=== PATIENT | male | born 1965 | race Caucasian/White ===

== ENCOUNTER → 2016-07-31 | Outpatient (REF) | payer BC ==
[2016-07-31 13:30] LABS: ALBUMIN 3.8 GM/DL (3.2-5.2); ALBUMIN/GLOBULIN RATIO 1.36 (1.00-1.93); ALKALINE PHOSPHATASE 44 U/L (45-117); ALT/SGPT 36 U/L (12-78); ANION GAP 5 MEQ/L (8-16); AST/SGOT 19 U/L (15-37); BLOOD UREA NITROGEN 16 MG/DL (7-18); CARBON DIOXIDE LEVEL 29 MEQ/L (21-32); CHLORIDE LEVEL 104 MEQ/L (98-107); CHOLESTEROL LEVEL 220 MG/DL (<200); CREATININE FOR GFR 0.99 MG/DL (0.70-1.30); GLOMERULAR FILTRATION RATE > 60.0 (>56); GLUCOSE, FASTING 118 MG/DL (70-105); POTASSIUM SERUM 4.7 MEQ/L (3.5-5.1); SODIUM LEVEL 138 MEQ/L (136-145); TOTAL PROTEIN 6.6 GM/DL (6.4-8.2); TRIGLYCERIDES LEVEL 158 MG/DL (<150)
[2016-07-31 13:56] LABS: BASO % 0.7 % (0.0-1.0); EOS # 0.3 K/mm3 (0.0-0.50); EOS % 4.5 % (0.0-3.0); LARGE UNSTAINED CELL # 0.1 K/mm3 (0.0-0.4); LARGE UNSTAINED CELL % 1.9 % (0.0-4.0); LYMPH # 1.9 K/mm3 (1.5-4.5); MEAN CORPUSCULAR HEMOGLOBIN 32.4 pg (27.0-33.0); MEAN CORPUSCULAR HGB CONC 33.7 g/dl (32.0-36.5); MEAN CORPUSCULAR VOLUME 96.1 fl (80.0-96.0); MONO # 0.5 K/mm3 (0.0-0.8); MONO % 7.4 % (0.0-5.0); NEUTROPHILS # 4.1 K/mm3 (1.8-7.7); NEUTROPHILS % 59.4 % (36.0-66.0); PLATELET COUNT, AUTOMATED 212 k/mm3 (150-450); RED CELL DISTRIBUTION WIDTH 11.6 % (11.5-14.5); WHITE BLOOD COUNT 6.9 K/mm3 (4.0-10.0)
== END ==
LOC: M SFHCADAM 07:54
PROVIDERS: ATTEND Physician Assistant Medical
DX: I10 Essential (primary) hypertension (principal); R73.01 Impaired fasting glucose

== ENCOUNTER → 2017-10-03 | Outpatient (REF) | payer BC ==
[2017-10-03 12:24] LABS: BASO % 0.5 % (0.0-1.0); EOS # 0.3 10^3/uL (0.0-0.50); EOS % 3.7 % (0.0-3.0); HEMATOCRIT 46.2 % (42.0-52.0); HEMOGLOBIN 16.3 g/dl (13.5-17.5); IMMATURE GRANULOCYTE % 0.4 % (0-3.0); LYMPH # 1.9 10^3/uL (1.5-4.5); LYMPH % 24.7 % (24.0-44.0); MEAN CORPUSCULAR HEMOGLOBIN 32.8 pg (27.0-33.0); MEAN CORPUSCULAR HGB CONC 35.3 g/dl (32.0-36.5); MONO # 0.7 10^3/uL (0.0-0.8); MONO % 8.4 % (0.0-5.0); NEUTROPHILS # 4.9 10^3/uL (1.8-7.7); NEUTROPHILS % 62.3 % (36.0-66.0); PLATELET COUNT, AUTOMATED 212 10^3/uL (150-450); RED BLOOD COUNT 4.97 10^6/uL (4.30-6.10); RED CELL DISTRIBUTION WIDTH 11.3 % (11.5-14.5); WHITE BLOOD COUNT 7.9 10^3/uL (4.0-10.0)
[2017-10-03 12:46] LABS: TOTAL 25(OH) VITAMIN D 12.8 NG/ML (30.0-100.0)
[2017-10-03 12:55] LABS: MALB URINE SIEMENS 7.7 MG/L; MAU/CREAT RATIO 3.6 MCG/MG (0.0-30.0)
[2017-10-03 13:25] LABS: BLOOD UREA NITROGEN 20 MG/DL (7-18); CREATININE FOR GFR 1.07 MG/DL (0.70-1.30); GLUCOSE, FASTING 97 MG/DL (70-100)
[2017-10-03 13:26] LABS: ALBUMIN 3.9 GM/DL (3.2-5.2); ALBUMIN/GLOBULIN RATIO 1.34 (1.00-1.93); ALKALINE PHOSPHATASE 55 U/L (45-117); ALT/SGPT 46 U/L (12-78); ANION GAP 6 MEQ/L (8-16); AST/SGOT 17 U/L (7-37); BILIRUBIN,TOTAL 1.1 MG/DL (0.2-1.0); CALCIUM LEVEL 8.7 MG/DL (8.5-10.1); CARBON DIOXIDE LEVEL 28 MEQ/L (21-32); CHLORIDE LEVEL 105 MEQ/L (98-107); CHOLESTEROL LEVEL 201 MG/DL (<200); CHOLESTEROL RISK RATIO 4.102 (<5); FREE T4 0.96 NG/DL (0.76-1.46); GLOMERULAR FILTRATION RATE > 60.0 (>56); HDL CHOLESTEROL 49 MG/DL (>40); LDL CHOLESTEROL 110.4 MG/DL (<100); NON-HDL-C 152 MG/DL; POTASSIUM SERUM 4.5 MEQ/L (3.5-5.1); SODIUM LEVEL 139 MEQ/L (136-145); THYROID STIMULATING HORMONE 0.962 uIU/ML (0.358-3.740); TOTAL PROTEIN 6.8 GM/DL (6.4-8.2); TRIGLYCERIDES LEVEL 208 MG/DL (<150)
[2017-10-03 14:29] LABS: ESTIMATED AVERAGE GLUCOSE 114 MG/DL (60-110); HEMOGLOBIN A1c 5.6 %
== END ==
LOC: M SFHCADAM 07:50
DX: E78.5 Hyperlipidemia, unspecified (principal); E55.9 Vitamin D deficiency, unspecified; R73.01 Impaired fasting glucose
CPT/HCPCS: 84443

== ENCOUNTER 2018-02-12 08:43 | Day surgery (SDC) | payer BC ==
[~2018-02-12 08:43] MED LIST: PROPOFOL 200 MG/20 ML VIAL As Ordered
[2018-02-12] MEDS ORDERED: NS 1,000 ML IV (10:15)
== END 2018-02-12 11:02 | disposition home or self-care (01) ==
LOC: M OPP 11:02
DX: Z12.11 Encounter for screening for malignant neoplasm of colon (principal); Z86.010 Personal history of colon polyps; K57.30 Diverticulosis of large intestine without perforation or abscess without bleeding; K64.8 Other hemorrhoids; I10 Essential (primary) hypertension; E78.5 Hyperlipidemia, unspecified; Z79.82 Long term (current) use of aspirin; Z79.899 Other long term (current) drug therapy
CPT/HCPCS: G0105

== ENCOUNTER → 2018-03-26 | Outpatient (REF) | payer BC ==
[2018-03-26 19:51] LABS: TOTAL 25(OH) VITAMIN D 62.3 NG/ML (30.0-100.0)
== END ==
LOC: M SFHCADAM 15:55
DX: E55.9 Vitamin D deficiency, unspecified (principal)
CPT/HCPCS: 82306

== ENCOUNTER → 2019-04-26 | Outpatient (REF) | payer BC ==
[~2019-04-26] MED LIST changes: +ASPI81TA26 PO; +ATOR1TAB21 PO; +LISI20TA19 PO; +MAGN250T9 PO; -PROPOFOL 200 MG/20 ML VIAL As Ordered
[2019-04-26 11:37] LABS: BASO # 0.1 10^3/uL (0.0-0.2); BASO % 0.9 % (0.0-1.0); EOS # 0.2 10^3/uL (0.0-0.5); EOS % 3.1 % (0.0-3.0); HEMATOCRIT 47.7 % (42.0-52.0); HEMOGLOBIN 16.2 g/dl (13.5-17.5); LYMPH # 1.6 10^3/uL (1.5-5.0); MEAN CORPUSCULAR HEMOGLOBIN 32.3 pg (27.0-33.0); MEAN CORPUSCULAR VOLUME 95.2 fl (80.0-96.0); MONO # 0.5 10^3/uL (0.0-0.8); MONO % 8.2 % (0.0-5.0); NEUTROPHILS # 3.5 10^3/uL (1.5-8.5); NEUTROPHILS % 60.1 % (36.0-66.0); PLATELET COUNT, AUTOMATED 218 10^3/uL (150-450); RED BLOOD COUNT 5.01 10^6/uL (4.30-6.10); WHITE BLOOD COUNT 5.9 10^3/uL (4.0-10.0)
[2019-04-26 11:42] LABS: ALBUMIN 3.9 GM/DL (3.2-5.2); ALT/SGPT 31 U/L (12-78); BILIRUBIN,TOTAL 0.7 MG/DL (0.2-1.0); BLOOD UREA NITROGEN 14 MG/DL (7-18); CALCIUM LEVEL 8.9 MG/DL (8.5-10.1); CARBON DIOXIDE LEVEL 27 MEQ/L (21-32); CHLORIDE LEVEL 103 MEQ/L (98-107); CHOLESTEROL LEVEL 264 MG/DL (<200); CHOLESTEROL RISK RATIO 6.139 (<5); CREATININE FOR GFR 0.98 MG/DL (0.70-1.30); GLOMERULAR FILTRATION RATE > 60.0 (>56); GLUCOSE, FASTING 119 MG/DL (70-100); HDL CHOLESTEROL 43 MG/DL (>40); LDL CHOLESTEROL 160 MG/DL (<100); NON-HDL-C 221 MG/DL; POTASSIUM SERUM 4.6 MEQ/L (3.5-5.1); SODIUM LEVEL 137 MEQ/L (136-145); TRIGLYCERIDES LEVEL 303 MG/DL (<150)
[2019-04-26 11:50] LABS: TOTAL 25(OH) VITAMIN D 27.7 NG/ML (30.0-100.0)
[2019-04-26 12:43] LABS: HEMOGLOBIN A1c 6.1 %
== END ==
LOC: M SFHCADAM 07:59
PROVIDERS: ATTEND Physician Assistant Medical
DX: I10 Essential (primary) hypertension (principal); E78.5 Hyperlipidemia, unspecified; E55.9 Vitamin D deficiency, unspecified; R73.01 Impaired fasting glucose

== ENCOUNTER → 2020-04-24 | Outpatient (REF) | payer BC ==
[~2020-04-24] MED LIST changes: -LISI20TA19 PO; +LISI20TA35 PO
[2020-04-24 12:44] LABS: BASO # 0.1 10^3/uL (0.0-0.2); BASO % 0.7 % (0.0-1.0); EOS # 0.2 10^3/uL (0.0-0.5); EOS % 2.2 % (0.0-3.0); HEMATOCRIT 48.6 % (42.0-52.0); HEMOGLOBIN 16.1 g/dl (13.5-17.5); LYMPH # 1.5 10^3/uL (1.5-5.0); LYMPH % 22.5 % (24.0-44.0); MEAN CORPUSCULAR HEMOGLOBIN 30.8 pg (27.0-33.0); MEAN CORPUSCULAR HGB CONC 33.1 g/dl (32.0-36.5); MEAN CORPUSCULAR VOLUME 93.1 fl (80.0-96.0); MONO # 0.6 10^3/uL (0.0-0.8); MONO % 8.2 % (0.0-5.0); NEUTROPHILS # 4.5 10^3/uL (1.5-8.5); NEUTROPHILS % 66.1 % (36.0-66.0); PLATELET COUNT, AUTOMATED 249 10^3/uL (150-450); RED BLOOD COUNT 5.22 10^6/uL (4.30-6.10); WHITE BLOOD COUNT 6.8 10^3/uL (4.0-10.0)
[2020-04-24 13:09] LABS: HEMOGLOBIN A1c 5.6 %
[2020-04-24 13:22] LABS: ALBUMIN 3.9 GM/DL (3.2-5.2); ALT/SGPT 38 U/L (12-78); BILIRUBIN,TOTAL 0.9 MG/DL (0.2-1.0); BLOOD UREA NITROGEN 16 MG/DL (7-18); CALCIUM LEVEL 9.4 MG/DL (8.5-10.1); CARBON DIOXIDE LEVEL 30 MEQ/L (21-32); CHLORIDE LEVEL 103 MEQ/L (98-107); CHOLESTEROL LEVEL 238 MG/DL (<200); CHOLESTEROL RISK RATIO 4.407 (<5); CREATININE FOR GFR 1.07 MG/DL (0.70-1.30); GLOMERULAR FILTRATION RATE > 60.0 (>56); GLUCOSE, FASTING 129 MG/DL (70-100); HDL CHOLESTEROL 54 MG/DL (>40); LDL CHOLESTEROL 165 MG/DL (<100); NON-HDL-C 184 MG/DL; POTASSIUM SERUM 4.7 MEQ/L (3.5-5.1); SODIUM LEVEL 139 MEQ/L (136-145); TOTAL PROTEIN 6.9 GM/DL (6.4-8.2); TRIGLYCERIDES LEVEL 97 MG/DL (<150)
== END ==
LOC: M SFHCADAM 08:26
PROVIDERS: ATTEND Physician Assistant Medical
DX: Z00.00 Encounter for general adult medical examination without abnormal findings (principal); I10 Essential (primary) hypertension; E78.5 Hyperlipidemia, unspecified; E55.9 Vitamin D deficiency, unspecified; R73.01 Impaired fasting glucose

== ENCOUNTER → 2020-06-15 | Outpatient (REF) | payer BC ==
[2020-06-15 12:59] LABS: BASO # 0.1 10^3/uL (0.0-0.2); BASO % 0.8 % (0.0-1.0); EOS # 0.1 10^3/uL (0.0-0.5); EOS % 1.5 % (0.0-3.0); HEMOGLOBIN 15.2 g/dl (13.5-17.5); LYMPH # 1.6 10^3/uL (1.5-5.0); LYMPH % 21.5 % (24.0-44.0); MEAN CORPUSCULAR HEMOGLOBIN 31.9 pg (27.0-33.0); MEAN CORPUSCULAR HGB CONC 33.8 g/dl (32.0-36.5); MEAN CORPUSCULAR VOLUME 94.3 fl (80.0-96.0); MONO # 0.7 10^3/uL (0.0-0.8); MONO % 8.9 % (2.0-8.0); NEUTROPHILS # 5.1 10^3/uL (1.5-8.5); NEUTROPHILS % 66.8 % (36.0-66.0); PLATELET COUNT, AUTOMATED 225 10^3/uL (150-450); RED BLOOD COUNT 4.77 10^6/uL (4.30-6.10); WHITE BLOOD COUNT 7.6 10^3/uL (4.0-10.0)
[2020-06-15 13:25] LABS: ALBUMIN 3.7 GM/DL (3.2-5.2); ALT/SGPT 46 U/L (12-78); BILIRUBIN,TOTAL 0.8 MG/DL (0.2-1.0); BLOOD UREA NITROGEN 14 MG/DL (7-18); CALCIUM LEVEL 8.8 MG/DL (8.5-10.1); CARBON DIOXIDE LEVEL 29 MEQ/L (21-32); CHLORIDE LEVEL 103 MEQ/L (98-107); CK-MB VALUE MASS 1.4 NG/ML (<3.6); CPK CREATINE PHOSPHOKINASE 170 U/L (39-308); CREATININE FOR GFR 0.95 MG/DL (0.70-1.30); GLOMERULAR FILTRATION RATE > 60.0 (>56); GLUCOSE, FASTING 102 MG/DL (70-100); MB/CK RELATIVE INDEX 0.82 (< OR =4); POTASSIUM SERUM 4.5 MEQ/L (3.5-5.1); SODIUM LEVEL 138 MEQ/L (136-145); TOTAL PROTEIN 6.4 GM/DL (6.4-8.2); TROPONIN I < 0.02 NG/ML (< 0.10)
[2020-06-15 13:38] LABS: ERYTHROCYTE SEDIMENTATION RATE 4 mm/hr (0-20)
== END ==
LOC: M SFHCADAM 09:57
PROVIDERS: ATTEND Family Medicine
DX: R07.9 Chest pain, unspecified (principal)

== ENCOUNTER → 2020-06-15 | Outpatient (CLI) | payer BC ==
--- NOTE | 2020-06-15 10:41 | REP ---
INDICATION: CHEST PAIN UNSPECIFIED TYPE. COMPARISON: No comparison chest x-rays. TECHNIQUE: Two views.. FINDINGS: There is a granulomatous calcification overlying the anterior end of the 3rd rib on the left. Below this at left mid lung field, there is an ill-defined 1.5 cm nodular density which is not definitely calcific. This is not seen on the lateral radiograph. The lung bertrand are otherwise clear. The pleural angles are sharp. Heart is not enlarged. There is minimal curvature and some degenerative disc change in the thoracic spine. The thoracic aorta is slightly tortuous. No acute bony abnormality is seen. IMPRESSION: 1.5 cm nodular density left mid lung zone. Granuloma versus noncalcified pulmonary nodule. Recommend chest CT study. Otherwise no active cardiopulmonary disease.. <Electronically signed by Kai Mosqueda > 06/15/20 [id number]
== END ==
LOC: M ADAMS 10:11
PROVIDERS: ATTEND Family Medicine
DX: R91.8 Other nonspecific abnormal finding of lung field (principal); R07.9 Chest pain, unspecified

== ENCOUNTER → 2020-06-21 | Outpatient (CLI) | payer BC ==
[~2020-06-21] MED LIST changes: +ISOVUE-370 76% 100ML VIAL As Ordered ONE
--- NOTE | 2020-06-21 20:47 | REP ---
INDICATION: ABN CHEST XRAY. COMPARISON: 06/15/2020 chest x-ray TECHNIQUE: Bolus of 75 cc Isovue 370 scanning through the chest with both coronal and sagittal reconstructions provided. FINDINGS: The lung bertrand are well inflated without pleural effusion or acute infiltrate. There is a densely calcified granuloma in the left lower lobe about 15 mm and corresponding to the radiographic finding last week. There is small of pleural based calcified granuloma mid axillary line on image 51 in the left lung. There is a 5 mm noncalcified granuloma in the right upper lobe on image 55 which is not seen radiographically. I do not I do not see other noncalcified nodules. There is some pleuroparenchymal scarring lateral basal segment left lower lobe in the deep sulcus. No calcified hilar nodes. Heart is not enlarged. There is no pericardial thickening or effusion. The aorta is without aneurysm or dissection and with few calcifications noted. The main, right and left pulmonary arteries are without filling defects. Lobar arteries intact without vessel cut off. No pathologic sized mediastinal or hilar adenopathy. Axillary and supraclavicular regions without mass or adenopathy. Bone windows show the sternum, manubrium, medial clavicles, AC joint on the left, glenohumeral joints and right humeral head all intact. The left humeral head has a bone island. Visualized ribs show no acute finding. Bony thorax is without compression deformity or focal lesion. There are marginal osteophytes. Upper abdomen shows that portion of liver and spleen included to be unremarkable. Gallbladder was intact there is no biliary dilatation. No definite adrenal lesion. Upper poles of kidneys are intact. Stomach was unremarkable with no hiatal hernia. Pancreas unremarkable. No retroperitoneal, periaortic or mesenteric lymphadenopathy seen. Visualized colon in the upper abdomen was unremarkable IMPRESSION: 1. Nodule seen on radiograph is a large calcified granuloma in the left lower lobe and represents a benign finding. There is another calcified granuloma in the left upper lobe. 2. 5 mm noncalcified nodule in the right upper lobe. Using Fleischner society recommendation for this nodule, a follow-up with CT in 6 months to document stability. No other significant finding <Electronically signed by Paul Mendes > 06/21/20 [id number]
== END ==
LOC: M RAD 17:02
PROVIDERS: ATTEND Family Medicine
DX: R91.8 Other nonspecific abnormal finding of lung field (principal); R93.89 Abnormal findings on diagnostic imaging of other specified body structures
CPT/HCPCS: 71260; Q9967

== ENCOUNTER → 2020-12-27 | Outpatient (CLI) | payer BC ==
[~2020-12-27] MED LIST changes: -ISOVUE-370 76% 100ML VIAL As Ordered ONE
--- NOTE | 2020-12-29 05:38 | REP ---
INDICATION: LUNG NODULE COMPARISON: 06/21/2020 TECHNIQUE: Axial noncontrast images from the thoracic inlet to the upper abdomen with coronal and sagittal reformations. This CT examination was performed using the following dose reduction techniques: Automated exposure control, adjustment of mA and/or kv according to the patient's size, and use of iterative reconstruction technique. FINDINGS: Calcified granuloma in the posterior aspect of the left upper lobe and smaller calcified subpleural density also previously identified in the left upper lobe along with few other scattered calcified nodules remain stable. 5 mm noncalcified nodule in the periphery of the right middle lobe again noted and essentially stable. No further significant nodule or mass lesion. No consolidation. No effusion. No pneumothorax. Tracheobronchial tree is patent. No significant adenopathy noted. Mediastinum demonstrates stable mild atherosclerotic changes to the thoracic aorta and coronary arteries without aortic aneurysm or cardiomegaly. No pericardial effusion. Skeletal structures intact and without acute osseous abnormality. IMPRESSION: Few bilateral calcified and noncalcified nodules remain essentially stable. Based on Fleischner society criteria this may be categorized as Lung-RADS 2. Twelve month follow-up examination for high risk patients may be warranted. <Electronically signed by Phan Alvarez > 12/29/20 0534
== END ==
LOC: M PLAIMG 11:02
PROVIDERS: ATTEND Physician Assistant Medical
DX: R91.1 Solitary pulmonary nodule (principal)

== ENCOUNTER → 2021-05-28 | Outpatient (REF) | payer BC ==
[2021-05-28 12:25] LABS: BASO % 0.7 % (0.0-1.0); EOS # 0.2 10^3/uL (0.0-0.5); EOS % 3.1 % (0.0-3.0); HEMATOCRIT 45.7 % (42.0-52.0); HEMOGLOBIN 15.7 g/dl (13.5-17.5); LYMPH # 1.5 10^3/uL (1.5-5.0); LYMPH % 26.5 % (24.0-44.0); MEAN CORPUSCULAR HEMOGLOBIN 31.7 pg (27.0-33.0); MEAN CORPUSCULAR HGB CONC 34.4 g/dl (32.0-36.5); MEAN CORPUSCULAR VOLUME 92.3 fl (80.0-96.0); MONO # 0.5 10^3/uL (0.0-0.8); MONO % 7.7 % (2.0-8.0); NEUTROPHILS # 3.6 10^3/uL (1.5-8.5); NEUTROPHILS % 61.5 % (36.0-66.0); PLATELET COUNT, AUTOMATED 241 10^3/uL (150-450); RED BLOOD COUNT 4.95 10^6/uL (4.30-6.10); WHITE BLOOD COUNT 5.8 10^3/uL (4.0-10.0)
[2021-05-28 12:57] LABS: ALBUMIN 3.8 GM/DL (3.2-5.2); ALT/SGPT 40 U/L (12-78); BILIRUBIN,TOTAL 0.6 MG/DL (0.2-1.0); BLOOD UREA NITROGEN 14 MG/DL (7-18); CALCIUM LEVEL 9.3 MG/DL (8.5-10.1); CARBON DIOXIDE LEVEL 27 MEQ/L (21-32); CHLORIDE LEVEL 102 MEQ/L (98-107); CHOLESTEROL LEVEL 222 MG/DL (<200); CHOLESTEROL RISK RATIO 6.166 (<5); CREATININE FOR GFR 0.96 MG/DL (0.70-1.30); GLOMERULAR FILTRATION RATE > 60.0 (>56); GLUCOSE, FASTING 126 MG/DL (70-100); HDL CHOLESTEROL 36 MG/DL (>40); NON-HDL-C 186 MG/DL; POTASSIUM SERUM 4.5 MEQ/L (3.5-5.1); SODIUM LEVEL 136 MEQ/L (136-145); TOTAL PROTEIN 6.8 GM/DL (6.4-8.2); TRIGLYCERIDES LEVEL 406 MG/DL (<150)
[2021-05-28 12:58] LABS: TOTAL 25(OH) VITAMIN D 30.8 NG/ML (30.0-100.0)
== END ==
LOC: M SFHCADAM 07:50
PROVIDERS: ATTEND Physician Assistant Medical
DX: Z00.00 Encounter for general adult medical examination without abnormal findings (principal); I10 Essential (primary) hypertension; E78.5 Hyperlipidemia, unspecified; E55.9 Vitamin D deficiency, unspecified; R73.01 Impaired fasting glucose

== ENCOUNTER → 2021-08-24 | Outpatient (REF) | payer BC ==
[2021-08-24 13:23] LABS: HEMOGLOBIN A1c 5.5 %
[2021-08-24 13:39] LABS: CHOLESTEROL RISK RATIO 4.4 (<5)
[2021-08-24 13:58] LABS: MALB URINE SIEMENS 5.9 MG/L; MAU/CREAT RATIO 5.1 MCG/MG (0.0-30.0)
== END ==
LOC: M SFHCADAM 08:02
PROVIDERS: ATTEND Physician Assistant Medical
DX: E78.5 Hyperlipidemia, unspecified (principal); R73.01 Impaired fasting glucose

== ENCOUNTER → 2022-01-25 | Outpatient (CLI) | payer BC | LOC: M RAD 07:14 | PROVIDERS: ATTEND Physician Assistant Medical | DX: R91.1 Solitary pulmonary nodule (principal) ==

== ENCOUNTER → 2022-03-01 | Outpatient (REF) | payer BC ==
[2022-03-01 14:29] LABS: ALBUMIN 3.8 GM/DL (3.2-5.2); ALT/SGPT 47 U/L (12-78); BLOOD UREA NITROGEN 14 MG/DL (7-18); CALCIUM LEVEL 9.3 MG/DL (8.5-10.1); CARBON DIOXIDE LEVEL 27 MEQ/L (21-32); CHLORIDE LEVEL 103 MEQ/L (98-107); CHOLESTEROL LEVEL 224 MG/DL (<200); CREATININE FOR GFR 1.08 MG/DL (0.70-1.30); GLOMERULAR FILTRATION RATE > 60.0 (>56); GLUCOSE, FASTING 117 MG/DL (70-100); HDL CHOLESTEROL 50 MG/DL (>40); LDL CHOLESTEROL 121 MG/DL (<100); NON-HDL-C 174 MG/DL; POTASSIUM SERUM 4.8 MEQ/L (3.5-5.1); SODIUM LEVEL 136 MEQ/L (136-145); TOTAL PROTEIN 6.9 GM/DL (6.4-8.2); TRIGLYCERIDES LEVEL 265 MG/DL (<150)
== END ==
LOC: M SFHCADAM 08:13
PROVIDERS: ATTEND Physician Assistant Medical
DX: E78.5 Hyperlipidemia, unspecified (principal); R73.01 Impaired fasting glucose

== ENCOUNTER → 2022-09-20 | Outpatient (REF) | payer BC ==
[2022-09-20 12:55] LABS: BASO # 0.1 10^3/uL (0.0-0.2); EOS # 0.2 10^3/uL (0.0-0.5); EOS % 3.8 % (0.0-3.0); HEMATOCRIT 46.4 % (42.0-52.0); HEMOGLOBIN 15.9 g/dl (13.5-17.5); LYMPH # 1.8 10^3/uL (1.5-5.0); LYMPH % 29.9 % (24.0-44.0); MEAN CORPUSCULAR HEMOGLOBIN 32.5 pg (27.0-33.0); MEAN CORPUSCULAR HGB CONC 34.3 g/dl (32.0-36.5); MEAN CORPUSCULAR VOLUME 94.9 fl (80.0-96.0); MONO # 0.7 10^3/uL (0.0-0.8); MONO % 11.4 % (2.0-8.0); NEUTROPHILS # 3.2 10^3/uL (1.5-8.5); NEUTROPHILS % 53.2 % (36.0-66.0); PLATELET COUNT, AUTOMATED 220 10^3/uL (150-450); RED BLOOD COUNT 4.89 10^6/uL (4.30-6.10); WHITE BLOOD COUNT 6.1 10^3/uL (4.0-10.0)
[2022-09-20 13:04] LABS: ALBUMIN 3.6 G/DL (3.2-5.2); ALKALINE PHOSPHATASE 64 U/L (46-116); ALT/SGPT 36 U/L (7.0-40); AST/SGOT 18 U/L (<34); BILIRUBIN,TOTAL 0.8 MG/DL (0.3-1.2); BLOOD UREA NITROGEN 16 MG/DL (9-23); CALCIUM LEVEL 9.1 MG/DL (8.5-10.1); CARBON DIOXIDE LEVEL 28 MMOL/L (20-31); CHLORIDE LEVEL 104 MMOL/L (98-107); CHOLESTEROL LEVEL 184 MG/DL (<200); CHOLESTEROL RISK RATIO 3.76 (<5); CREATININE FOR GFR 0.98 MG/DL (0.70-1.30); GLOMERULAR FILTRATION RATE > 60.0 (>56); GLUCOSE, FASTING 128 MG/DL (60-100); HDL CHOLESTEROL 48.9 MG/DL (>40); LDL CHOLESTEROL 107.1 MG/DL (<100); NON-HDL-C 135.1 MG/DL; POTASSIUM SERUM 4.6 MMOL/L (3.5-5.1); SODIUM LEVEL 138 MMOL/L (136-145); TOTAL PROTEIN 6.1 G/DL (5.7-8.2); TRIGLYCERIDES LEVEL 140 MG/DL (<150)
[2022-09-20 13:06] LABS: THYROID STIMULATING HORMONE 1.759 uIU/ML (0.55-4.78); TOTAL 25(OH) VITAMIN D 37.2 NG/ML (20.0-100.0)
[2022-09-20 13:27] LABS: HEMOGLOBIN A1c 5.8 % (4.0-6.0)
[2022-09-20 13:43] LABS: CREATININE, URINE 38.8 MG/DL; MALB URINE SIEMENS < 3.0 MG/L; MAU/CREAT RATIO 7.7 MCG/MG (0.0-30.0)
== END ==
LOC: M SFHCADAM 07:32
PROVIDERS: ATTEND Physician Assistant Medical
DX: I10 Essential (primary) hypertension (principal); E78.5 Hyperlipidemia, unspecified; E55.9 Vitamin D deficiency, unspecified; R73.01 Impaired fasting glucose

== ENCOUNTER → 2023-09-18 | Outpatient (CLI) | payer BC | LOC: M RAD 08:42 | PROVIDERS: ATTEND Physician Assistant Medical | DX: I71.40 Abdominal aortic aneurysm, without rupture, unspecified (principal) ==

== ENCOUNTER → 2023-11-21 | Outpatient (REF) | payer BC ==
[2023-11-21 14:14] LABS: ALKALINE PHOSPHATASE 65 U/L (46-116); ALT/SGPT 41 U/L (7.0-40); AST/SGOT 17 U/L (<34); BILIRUBIN,TOTAL 1.1 MG/DL (0.3-1.2); BLOOD UREA NITROGEN 17 MG/DL (9-23); CALCIUM LEVEL 9.2 MG/DL (8.3-10.6); CARBON DIOXIDE LEVEL 26 MMOL/L (20-31); CHLORIDE LEVEL 106 MMOL/L (98-107); CHOLESTEROL LEVEL 208 MG/DL (<200); CHOLESTEROL RISK RATIO 4.04 (<5); CREATININE FOR GFR 1.04 MG/DL (0.70-1.30); GLOMERULAR FILTRATION RATE > 60.0 (>49); GLUCOSE, FASTING 109 MG/DL (74-106); HDL CHOLESTEROL 51.4 MG/DL (>40); LDL CHOLESTEROL 129.8 MG/DL (<100); NON-HDL-C 156.6 MG/DL; POTASSIUM SERUM 4.7 MMOL/L (3.5-5.1); SODIUM LEVEL 139 MMOL/L (136-145); TOTAL PROTEIN 6.7 G/DL (5.7-8.2); TRIGLYCERIDES LEVEL 134 MG/DL (<150)
[2023-11-21 14:16] LABS: THYROID STIMULATING HORMONE 2.229 uIU/ML (0.55-4.78); TOTAL 25(OH) VITAMIN D 36.2 NG/ML (20.0-100.0)
[2023-11-21 14:32] LABS: HEMOGLOBIN A1c 5.9 % (4.0-6.0)
[2023-11-21 14:37] LABS: MALB URINE SIEMENS < 3.0 MG/L; MAU/CREAT RATIO 4.1 MCG/MG (0.0-30.0)
== END ==
LOC: M SFHCADAM 07:53
PROVIDERS: ATTEND Physician Assistant Medical
DX: I10 Essential (primary) hypertension (principal); E78.5 Hyperlipidemia, unspecified; E55.9 Vitamin D deficiency, unspecified; R73.01 Impaired fasting glucose

== ENCOUNTER 2023-12-12 08:34 | Day surgery (SDC) | payer BC ==
[~2023-12-12] VITALS: Ht 175.3 cm; Wt 93.3 kg
[~2023-12-12 08:34] MED LIST changes: +ATOR80TA59 PO; +VITA-256 PO
[2023-12-12] MEDS: NS 1,000 ML IV ONE (08:55)
[2023-12-12] MEDS ORDERED: LIDOCAINE 2% 100MG/5ML SDV (FOR ANES.) As Ordered ONE (10:06)
[2023-12-12] MEDS ORDERED: propofoL 200 MG/20 ML VIAL As Ordered ONE (10:06)
[2023-12-12 10:43] VITALS: TEMP 98
[2023-12-12 11:01] VITALS: BP 110/64; O2SAT 96
== END 2023-12-12 11:03 | disposition home or self-care (01) ==
LOC: M OPP 08:34
PROVIDERS: ATTEND Internal Medicine Gastroenterology
DX: Z12.11 Encounter for screening for malignant neoplasm of colon (principal); Z86.010 Personal history of colon polyps; D12.5 Benign neoplasm of sigmoid colon; K64.8 Other hemorrhoids; K57.30 Diverticulosis of large intestine without perforation or abscess without bleeding; I10 Essential (primary) hypertension; Z79.02 Long term (current) use of antithrombotics/antiplatelets; Z79.899 Other long term (current) drug therapy

== ENCOUNTER → 2024-07-16 | Outpatient (REF) | payer BC ==
[2024-07-16 14:03] LABS: BASO # 0.1 10^3/uL (0.0-0.2); BASO % 0.8 % (0.0-1.0); EOS # 0.2 10^3/uL (0.0-0.5); EOS % 2.6 % (0.0-3.0); HEMATOCRIT 43.8 % (42.0-52.0); HEMOGLOBIN 15.4 g/dl (13.5-17.5); LYMPH # 1.6 10^3/uL (1.5-5.0); LYMPH % 26.3 % (24.0-44.0); MEAN CORPUSCULAR HGB CONC 35.2 g/dl (32.0-36.5); MONO # 0.6 10^3/uL (0.0-0.8); MONO % 10.6 % (2.0-8.0); NEUTROPHILS # 3.6 10^3/uL (1.5-8.5); NEUTROPHILS % 59.2 % (36.0-66.0); PLATELET COUNT, AUTOMATED 180 10^3/uL (150-450); RED BLOOD COUNT 4.66 10^6/uL (4.30-6.10)
[2024-07-16 14:10] LABS: CREATININE, URINE 63.5 MG/DL; MALB URINE SIEMENS < 3.0 MG/L
[2024-07-16 14:12] LABS: ALBUMIN 3.7 G/DL (3.2-5.2); ALKALINE PHOSPHATASE 60 U/L (40-129); ALT/SGPT 34 U/L (7.0-40); AST/SGOT 24 U/L (<34); BILIRUBIN,TOTAL 1.4 MG/DL (0.3-1.2); BLOOD UREA NITROGEN 14 MG/DL (9-23); CALCIUM LEVEL 9.1 MG/DL (8.3-10.6); CARBON DIOXIDE LEVEL 29 MMOL/L (20-31); CHLORIDE LEVEL 105 MMOL/L (98-107); CHOLESTEROL LEVEL 183 MG/DL (<200); CHOLESTEROL RISK RATIO 3.98 (<5); CREATININE FOR GFR 0.96 MG/DL (0.70-1.30); GLOMERULAR FILTRATION RATE > 60.0 (>49); GLUCOSE, FASTING 118 MG/DL (74-106); HDL CHOLESTEROL 45.9 MG/DL (>40); LDL CHOLESTEROL 107.9 MG/DL (<100); NON-HDL-C 137.1 MG/DL; POTASSIUM SERUM 4.7 MMOL/L (3.5-5.1); SODIUM LEVEL 139 MMOL/L (136-145); TOTAL PROTEIN 6.3 G/DL (5.7-8.2); TRIGLYCERIDES LEVEL 146 MG/DL (<150)
[2024-07-16 14:14] LABS: THYROID STIMULATING HORMONE 1.457 uIU/ML (0.55-4.78); TOTAL 25(OH) VITAMIN D 28.3 NG/ML (20.0-100.0)
== END ==
LOC: M SFHCADAM 07:22
PROVIDERS: ATTEND Physician Assistant Medical
DX: E78.5 Hyperlipidemia, unspecified (principal); R73.01 Impaired fasting glucose; E55.9 Vitamin D deficiency, unspecified

== ENCOUNTER → 2024-12-24 | Outpatient (REF) | payer BC ==
[2024-12-24 13:35] LABS: BASO # 0.1 10^3/uL (0.0-0.2); BASO % 0.8 % (0.0-1.0); EOS # 0.2 10^3/uL (0.0-0.5); EOS % 3.4 % (0.0-3.0); LYMPH # 1.7 10^3/uL (1.5-5.0); LYMPH % 27.0 % (24.0-44.0); MONO # 0.6 10^3/uL (0.0-0.8); MONO % 10.1 % (2.0-8.0); NEUTROPHILS # 3.6 10^3/uL (1.5-8.5); NEUTROPHILS % 58.2 % (36.0-66.0); PLATELET COUNT, AUTOMATED 231 10^3/uL (150-450)
[2024-12-24 13:38] LABS: ALT/SGPT 36.0 U/L (7.0-40); AST/SGOT 22.0 U/L (<34); CALCIUM LEVEL 9.5 MG/DL (8.3-10.6); CARBON DIOXIDE LEVEL 28.0 MMOL/L (20-31); CHLORIDE LEVEL 104.0 MMOL/L (98-107); CHOLESTEROL LEVEL 183.0 MG/DL (<200); CHOLESTEROL RISK RATIO 3.47 (<5); CREATININE FOR GFR 1.02 MG/DL (0.70-1.30); GLOMERULAR FILTRATION RATE 83.6 (>49); LDL CHOLESTEROL 110.5 MG/DL (<100); NON-HDL-C 130.3 MG/DL; POTASSIUM SERUM 4.8 MMOL/L (3.5-5.1); SODIUM LEVEL 140.0 MMOL/L (136-145); TRIGLYCERIDES LEVEL 99.0 MG/DL (<150)
[2024-12-24 13:40] LABS: FREE T4 1.16 NG/DL (0.89-1.76); TOTAL 25(OH) VITAMIN D 47.2 NG/ML (20.0-100.0)
[2024-12-24 13:43] LABS: ESTIMATED AVERAGE GLUCOSE 123.0 MG/DL (60-110)
== END ==
LOC: M SFHCADAM 07:49
PROVIDERS: ATTEND Physician Assistant Medical
DX: Z00.00 Encounter for general adult medical examination without abnormal findings (principal); I10 Essential (primary) hypertension; E78.5 Hyperlipidemia, unspecified; R73.01 Impaired fasting glucose; E55.9 Vitamin D deficiency, unspecified; R91.1 Solitary pulmonary nodule; Z82.49 Family history of ischemic heart disease and other diseases of the circulatory system